=== PATIENT | male | born 1970 | race Caucasian/White ===

== ENCOUNTER 2018-07-05 01:28 | Emergency (ER) | payer SELFPAY ==
[2018-07-05] MEDS: FENTANYL CITRATE INJ/PF 100 MCG/2 ML AMPUL IV PRN ×2 (01:43→02:12)
[2018-07-05] MEDS ORDERED: PROPOFOL INJ 200 MG/20 ML VIAL IV ONE (01:51)
[2018-07-05] MEDS ORDERED: PROPOFOL 1,000 MG/100 ML INFUS..BTL IV ONE ×2 (01:52→04:49)
[2018-07-05 01:54] LABS: ARTERIAL BLOOD BASE EXCESS -13.5 mmol/L; ARTERIAL BLOOD H2CO3 2.02 mmol/L (1.05-1.35); ARTERIAL BLOOD HCO3 17.8 mmol/L (20-24); ARTERIAL BLOOD O2 SATURATION 99.4 % (94-98); ARTERIAL BLOOD PO2 302.5 mmHg (80-100); ARTERIAL BLOOD TOTAL CO2 19.8 mmol/L (23-27)
[2018-07-05 01:57] LABS: ARTERIAL BLOOD FIO2 15L; ARTERIAL BLOOD PH 7.04 (7.35-7.45)
[2018-07-05] MEDS: MIDAZOLAM 2 MG/2 ML INJ IV PRN ×3 (01:57→04:31)
[2018-07-05 02:02] LABS: ALANINE AMINOTRANSFERASE 47 U/L (21-72); ALBUMIN 3.2 g/dL (3.5-5.0); ALKALINE PHOSPHATASE 70 U/L (38-126); ANION GAP 13 (5-19); ASPARTATE AMINO TRANSFERASE 58 U/L (17-59); BILIRUBIN,DIRECT 0.2 mg/dL (0.0-0.4); BILIRUBIN,TOTAL 0.3 mg/dL (0.2-1.3); BLOOD UREA NITROGEN 18 mg/dL (7-20); CALCIUM 8.5 mg/dL (8.4-10.2); CARBON DIOXIDE 23 mmol/L (22-30); CHLORIDE 102 mmol/L (98-107); CREATINE KINASE 117 U/L (55-170); GLUCOSE 265 mg/dL (75-110); LIPASE 136.4 U/L (23-300); POTASSIUM 4.5 mmol/L (3.6-5.0); SODIUM 137.7 mmol/L (137-145); TOTAL PROTEIN 5.8 g/dL (6.3-8.2)
[2018-07-05] MEDS ORDERED: LABETALOL HCL INJ 20 MG/4 ML DISP.SYRIN IV ONE (02:04)
--- NOTE | 2018-07-05 02:11 | RADIOLOGY REPORT (SQ) ---
Chest single view on 07/05/2018 at 2:03 AM CLINICAL INDICATION: Intubated COMPARISON: None FINDINGS: Multiple overlying wires are noted. ET tube tip is in the midthoracic trachea approximately 4.1 cm above the level of the marleny. The lungs are clear. Cardiac, hilar and mediastinal contours are within normal limits. Pulmonary vascularity is within normal limits. IMPRESSION: No acute disease.
[2018-07-05 02:13] LABS: CREATINE KINASE MB 1.31 ng/mL (<4.55); TROPONIN I 0.016 ng/mL
[2018-07-05 02:17] LABS: HEMATOCRIT 38.9 % (37.9-51.0); HEMOGLOBIN 12.5 g/dL (13.5-17.0); MEAN CORPUSCULAR HEMOGLOBIN 28.9 pg (27.0-33.4); MEAN CORPUSCULAR HGB CONC 32.1 g/dL (32.0-36.0); MEAN CORPUSCULAR VOLUME 90 fl (80-97); PLATELET COUNT 286 10^3/uL (150-450); RED BLOOD COUNT 4.33 10^6/uL (4.35-5.55); RED CELL DISTRIBUTION WIDTH 13.7 % (11.5-14.0); WHITE BLOOD COUNT 15.2 10^3/uL (4.0-10.5)
[2018-07-05] MEDS ORDERED: MIDAZOLAM HCL 50 MG/100 ML RTUINJ IV PRN (02:42)
[2018-07-05] MEDS ORDERED: VECURONIUM BROMIDE INJ 10 MG VIAL IV ONE (02:50)
[2018-07-05 02:52] LABS: ABSOLUTE LYMPHOCYTES# (MANUAL) 9.3 10^3/uL (0.5-4.7); ABSOLUTE MONOCYTES # (MANUAL) 0.6 10^3/uL (0.1-1.4); ABSOLUTE NEUTROPHILS# (MANUAL) 4.7 10^3/uL (1.7-8.2); BASOPHILS % (MANUAL) 1 % (0-2); EOSINOPHILS % (MANUAL) 3 % (0-6); LYMPHOCYTES % (MANUAL) 61 % (13-45); MONOCYTES % (MANUAL) 4 % (3-13); PLATELET COMMENT ADEQUATE; SEGMENTED NEUTROPHILS % (MAN) 31 % (42-78); TOTAL CELLS COUNTED 100
--- NOTE | 2018-07-05 02:52 | RADIOLOGY REPORT (SQ) ---
EXAM DESCRIPTION: CT HEAD WITHOUT IV CONTRAST COMPLETED DATE/TME: 07/05/2018 01:46 CLINICAL HISTORY: 48 years, Male, post arrest possible anoxic injury COMPARISON: None. TECHNIQUE: Axial CT images of the right and rotated without contrast. DL 1028 Images stored on PACS. All CT scanners at this facility use dose modulation, iterative reconstruction, and/or weight based dosing when appropriate to reduce radiation dose to as low as reasonably achievable (ALARA). [facility]: Dose Right [facility]: CareDose [facility]: Dose Right [facility]: Teradose 4D [facility]: [employer] LIMITATIONS: None. FINDINGS: There is diffuse cerebral edema with loss of sulcation. There is no hemorrhage, midline shift, herniation, or hydrocephalus. There is complete opacification of the left frontal sinus, anterior left ethmoid air cells, and left maxillary sinus. The mastoid air cells are clear. There is no acute fracture. IMPRESSION: Diffuse cerebral edema, likely related to anoxic brain injury. TECHNICAL DOCUMENTATION: Quality ID # [id number]: Final reports with documentation of one or more dose reduction techniques (e.g., Automated exposure control, adjustment of the mA and/or kV according to patient size, use of iterative reconstruction technique) 2010 [employer]- All Rights Reserved
--- NOTE | 2018-07-05 02:58 | RADIOLOGY REPORT (SQ) ---
EXAM DESCRIPTION: CT CERVICAL SPINE WITHOUT IV CONTRAST COMPLETED DATE/TME: 07/05/2018 01:46 CLINICAL HISTORY: 48 years Male, possible fall and arrest Comparison: None. Technique: No contrast. Coronal and sagittal reformat. This exam was performed according to our departmental dose-optimization program, which includes automated exposure control, adjustment of the mA and/or kV according to patient size and/or use of iterative reconstruction technique.[facility]: Dose Right [facility]: CareDose [facility]: Dose Right [facility]: Teradose 4D [facility]: [employer] LIMITATIONS: None Findings: Moderate right sixth foraminal stenosis due to spondylosis. Partially imaged endotracheal tube. Normal alignment. Normal curvature. No fracture. Normal vertebral heights. Partially imaged nuchal soft tissues, inferior cranium, and upper thorax appear otherwise grossly intact. IMPRESSION: No acute findings.
[2018-07-05 03:34] LABS: APPEARANCE,URINE SLIGHTLY-CLOUDY; BILIRUBIN,URINE NEGATIVE (NEGATIVE); COLOR,URINE YELLOW; GLUCOSE, URINE 150 mg/dL (NEGATIVE); KETONES,URINE NEGATIVE (NEGATIVE); LEUKOCYTE ESTERASE,URINE NEGATIVE (NEGATIVE); NITRITE,URINE NEGATIVE (NEGATIVE); PROTEIN,URINE 100 mg/dL (NEGATIVE); URINE SPECIFIC GRAVITY 1.012; UROBILINOGEN,URINE NEGATIVE mg/dL (<2.0)
--- NOTE | 2018-07-05 03:52 | ER Document Report ---
ED Resuscitation - General Chief Complaint: Overdose Stated Complaint: CARDIAC ARREST Time Seen by Provider: 07/05/18 01:44 - HPI Witnessed arrest: Yes Bystander CPR?: Yes Onset: Just prior to arrival - Paramedics initial findings Unresponsive: Completely Respirations: No respirations Rhythm: Asystole - Pre-hospital treatment Treatment: Bag-valve mask, CPR/thumper, Oxygen Past Medical History - General Information source: Law Enforcement, Emergency Med Personnel Cannot obtain history due to: Other - Unresponsive - Social History Smoking Status: Unknown if Ever Smoked Family History: None Review of Systems - Review of Systems -: Yes ROS unobtainable due to patient's medical condition Physical Exam - Vital signs Vitals: Resp BP Pulse Ox 31 H 130/76 H 99 07/05/18 01:39 07/05/18 01:39 07/05/18 01:39 Interpretation: Hypotensive - General General appearance: Unresponsive In distress: Severe - HEENT Head: Normocephalic Eyes: Normal Conjunctiva: Normal Cornea: Normal Eyelashes: Normal Pupils: Dilated, Fixed - Respiratory Respiratory status: Other - Hunter airway in place, no appreciable spontaneous breaths Chest status: Nontender Breath sounds: Normal Chest palpation: Normal - Cardiovascular Rhythm: Regular Heart sounds: Normal auscultation Murmur: No - Abdominal Inspection: Normal Distension: No distension Tenderness: Other - small echymosis over the left abdomen - Back Back: Normal - Extremities General upper extremity: Normal inspection, Nontender, Normal strength, Normal temperature General lower extremity: Normal inspection, Nontender, Normal strength, Normal temperature - Neurological Neuro grossly intact: No Walker Coma Scale Eye Opening: None Walker Coma Scale Verbal: None [place] Coma Scale Motor: None Walker Coma Scale Total: 3 - Skin Skin Temperature: Warm Skin Moisture: Dry Skin Color: Pale Course - Re-evaluation Re-evalutation: 07/05/18 03:56 This 48-year-old man presented in extremis. He was witnessed with 2 other individuals entering bathroom at which time they snorted some unknown intoxicant believe potentially to be heroin. Thereafter he was witnessed to become unresponsive, he fell to the ground. At that time the police were called. Upon initial response 4 mg of Narcan were administered to the patient, he was pulseless he did not improve with Narcan and CPR was initiated, at that time EMS had arrived he had 4 minutes of CPR with administration of epinephrine, he was noted to be in asystole upon initial pulse and rhythm check. Following administration of 2 rounds of CPR and epinephrine he had a return of circulation, he had a Hunter airway placed for ventilation and was subsequently transported, he received another 4 mg of Narcan while in route. Upon arrival this gentleman was doing nothing purposefully, his pupils were fixed and dilated. He had no response to noxious stimuli. He was placed on monitor, he had access obtained through peripheral large bore IVs, 218-gauge. His Hunter airway was subsequently transitioned to an ET tube without any paralytic administered. Following initiation of ventilation via endotracheal tube his heart rate increased and his blood pressure increased. A chest x-ray confirmed tube placement, because of his increasing apparent agitation via vital signs initiated sedation utilizing propofol as well as fentanyl and Versed. Initial arterial blood gas demonstrated hyperoxia with a marked acidosis likely as a result of his downtime and CPR, down titrated his FiO2 from 60-40%. His blood pressure improved from the 200+ systolic range with sedation. His work of breathing began to override the ventilator with marked tachypnea to the range of 35, because of his agitation and occasional now movements in which he sat up in bed made determination to proceed with paralysis of this patient, administered vecuronium via IV 10 mg. Patient was taken for CT imaging of the head as well as cervical spine. CT imaging of the head demonstrated what appears to be cerebral edema, with probable anoxic injury. Given that the patient however is beginning to breathe spontaneously and occasionally move believe this patient will require a higher level of care, he did have a cardiac arrest and EKG was obtained which shows poor R wave progression and Q waves in his inferior chest wall but no obvious acute changes. Contacted [facility] who question whether or not patient might benefit from observation and admission and [place], because of the concern of the hospitalist here for lack of neurology as well as cardiology with intervention he deferred, contacted [facility] who does not have neurology as well [facility] who noted that if patient did require higher level of care and [facility] did have capacity was most appropriate that they take the patient. Upon consultation with the shipping hand Dr. Espino he agreed that patient may benefit from transfer for higher level of care and more specialty needs. He agreed to accept this patient in transfer to the intensive care unit. Because of his ongoing needs will plan for this patient undergo transfer [facility] under the care of Dr. Espino. At this time the patient's blood pressure is in the 120 systolic range with a heart rate in the 70s, he is synchronous with the vent with a pulse ox reading persistently in the 95-100 range. At this time it is likely that this patient had a hypoxic respiratory arrest as a result of his use of narcotic medication potentially laced with a stronger narcotic, is unclear at this time what his neurologic status is as he is now been paralyzed and sedated though he had set up nearly with the ET tube in place. We will plan for continued monitoring in emergency department until this patient is transported to [facility]. 07/05/18 04:45 Repeat blood gas demonstrates an improvement in patient's acidosis, he is now essentially normal car back slightly hyperoxic, down titrated FiO2 from 40% to 35%. Have intermittently bolused Versed as well as fentanyl for sedation along with patient's propofol infusion which has been up and down titrated as necessary to obtain appropriate blood pressures and mental status. - Vital Signs Vital signs: Temp Pulse Resp BP Pulse Ox 21 H 183/122 H 98 07/05/18 04:11 07/05/18 04:11 07/05/18 04:11 - Laboratory Result Diagrams: 07/05/18 01:35 07/05/18 01:35 Laboratory results interpreted by me: 07/05/18 07/05/18 07/05/18 01:35 01:35 01:41 WBC 15.2 H RBC 4.33 L Hgb 12.5 L Seg Neuts % (Manual) 31 L Lymphocytes % (Manual) 61 H Abs Lymphs (Manual) 9.3 H Carbonic Acid 2.02 H ABG pH 7.04 L* ABG pCO2 67.0 H ABG pO2 302.5 H ABG HCO3 17.8 L ABG Total CO2 19.8 L ABG O2 Saturation 99.4 H Creatinine 1.40 H Est GFR (Non-Af Amer) 54 L Glucose 265 H Total Protein 5.8 L Albumin 3.2 L Urine Protein Urine Glucose (UA) Urine Blood Urine Sodium 07/05/18 07/05/18 07/05/18 01:49 01:49 04:27 WBC RBC Hgb Seg Neuts % (Manual) Lymphocytes % (Manual) Abs Lymphs (Manual) Carbonic Acid ABG pH 7.31 L ABG pCO2 ABG pO2 180.2 H ABG HCO3 19.9 L ABG Total CO2 21.2 L ABG O2 Saturation 99.1 H Creatinine Est GFR (Non-Af Amer) Glucose Total Protein Albumin Urine Protein 100 H Urine Glucose (UA) 150 H Urine Blood MODERATE H Urine Sodium 133 H Procedures - Intubation Orotracheal Airway evaluation: Normal anatomy Mallampati Classification: Class 2 Intubation method: Orotracheal Blade type: Emeka Blade size: 3 Equipment used: Glidescope ETT size: 8.0 ETT secured at: Teeth ETT secured at (cm): 25 Breath Sounds after Intubation: Equal End tidal CO2 confirmed: Yes Post Intubation Xray: Yes Intubation Complications: No complications Critical Care Note - Critical Care Note Total time excluding time spent on procedures (mins): 75 Discharge - Discharge Clinical Impression: Respiratory arrest, Cardiac arrest, Cerebral edema due to anoxia Overdose Qualifiers: Encounter type: initial encounter Injury intent: accidental or unintentional Qualified Code(s): T50.901A - Poisoning by unspecified drugs, medicaments and biological substances, accidental (unintentional), initial encounter Condition: Critical Disposition: [facility]
[2018-07-05 04:42] LABS: ARTERIAL BLOOD FIO2 40%; ARTERIAL BLOOD H2CO3 1.23 mmol/L (1.05-1.35); ARTERIAL BLOOD HCO3 19.9 mmol/L (20-24); ARTERIAL BLOOD O2 SATURATION 99.1 % (94-98); ARTERIAL BLOOD PCO2 40.8 mmHg (35-45); ARTERIAL BLOOD PH 7.31 (7.35-7.45); ARTERIAL BLOOD PO2 180.2 mmHg (80-100); ARTERIAL BLOOD TOTAL CO2 21.2 mmol/L (23-27)
[2018-07-05 06:32] VITALS: BP 180/116
[2018-07-05] MEDS ORDERED: NALOXONE HCL INJ 2 MG/2 ML DISP.SYRIN IV ONE (07:55)
[2018-07-05] MEDS ORDERED: PROPOFOL 1,000 MG/100 ML INFUS..BTL IV PRN (07:59)
--- NOTE | 2018-07-06 07:53 | EKG REPORT ---
SEVERITY:- ABNORMAL ECG - SINUS TACHYCARDIA INFERIOR INFARCT, AGE INDETERMINATE PROLONGED QT INTERVAL NONSPECIFIC LATERAL ST CHANGES : Confirmed by: Smith Lea MD 06-Jul-2018 07:52:19
== END 2018-07-05 05:00 | disposition short-term general hospital (02) ==
LOC: ER 01:28
DX: S06.1X9A Traumatic cerebral edema with loss of consciousness of unspecified duration, initial encounter (principal); I46.9 Cardiac arrest, cause unspecified; R09.2 Respiratory arrest; T50.901A Poisoning by unspecified drugs, medicaments and biological substances, accidental (unintentional), initial encounter; X58.XXXA Exposure to other specified factors, initial encounter
CPT/HCPCS: 93005; 99291; 99292; 96374; 36415; 82553; 82803; 82550; 83690; 84300; 85025; 80053; 81001; 84484; 71045; 70450; 72125; 94660; 93010; J2250; J3010; J2704 ×2; J3490 ×2; J2310